=== PATIENT | female | born 1945 | race Caucasian/White ===

== ENCOUNTER 2023-05-01 07:50 | Day surgery (SDC) | payer MEDICARE, OTHER ==
[2023-04-29 11:40] VITALS: BP 149/65
[~2023-05-01] VITALS: Ht 160 cm; Wt 90.0 kg
[~2023-05-01 07:50] MED LIST: ATORVASTATIN CA40 MG PO; BISOPROLOL FUMAR5 MG PO; CELEXA40 MG PO; CLARITIN10 M2 PO; DEPAKOTE ER250 MG PO; DEPAKOTE ER500 MG PO; FUROSEMIDE20 MG PO; K-TAB ER20 MEQ; LEVOTHYROXINE100 MC2 PO; LISINOPRIL-HCT1 EACH PO; LOW DOSE ASPIRI81 MG PO; METFORMIN HCL500 M2 PO; MULTI VITAMIN1 EACH PO; SINGULAIR10 MG PO
[2023-05-01 08:03] VITALS: BP 149/57
--- NOTE | 2023-05-01 10:51 | NUR ---
05/01/23 1051 Jennifer Zuluaga 1037 PT TO PACU AWAKE, DENIES PAIN AND NAUSEA.
[2023-05-01 11:16] VITALS: BP 156/64
--- NOTE | 2023-05-01 12:43 | OR ---
[facility] [address] [place], [place] [address] Signed DATE OF OPERATION: 05/01/2023 SURGEON: Stacey Orozco MD PREOPERATIVE DIAGNOSES: 1. Probable personal history of colonic polyps 2010 at age 64. 2. Positive Cologuard test. 3. Anemia with hemoglobin of 11.8, mean cell volume 91.8. POSTOPERATIVE DIAGNOSES: 1. Tortuous sigmoid colon. 2. Minimal to moderate sigmoid diverticulosis. 3. Moderate internal and external hemorrhoids with associated skin tags. 4. 3 mm polyps x3 at 4 cm in rectum. 5. 10 mm and 7 mm sessile polyps at ileocecal valve and opposite ileocecal valve (snare). 6. 4 mm polyp at 90 cm and distal splenic flexure. 7. 4 mm polyp at 85 cm in proximal left colon. 8. 15 mm pedunculated polyp at 12 cm in rectosigmoid junction (snare). PROCEDURE: Colonoscopy with hot biopsy and snare polypectomy. ESTIMATED BLOOD LOSS: None. INDICATIONS: Maxine is a 77-year-old female, asked to see me for a followup colonoscopy. In 2009 at the age of 64, she underwent a colonoscopy with Dr. Burroughs in [place], [place]. She thinks maybe a polyp was removed at that time. She told me her memory is not the best. She did have a positive Cologuard test recently. Otherwise, she has no lower GI complaints. There is no family history of colon cancer or polyps. In the office, I gave Maxine a pamphlet on colonoscopy. We had reviewed the nature of the test along with the risk including, but not limited to gas bloating, crampy abdominal pain, bleeding, perforation requiring surgery, and missed diagnosis. We also reviewed the need for monitored anesthesia care given her advanced age as well as sleep apnea and heavy round face, chest and abdomen. She had expressed understanding and wished to proceed. DESCRIPTION OF PROCEDURE: Maxine was taken into our endoscopy suite and placed in the left lateral decubitus Electronically Signed By: STACEY OROZCO MD 05/01/23 1243 PATIENT NAME: MAXINE MANJARREZ OPERATIVE REPORT DATE OF : 45 REPORT #: [id number] PHYSICIAN: STACEY OROZCO MD PCP: BRENDAN STEVENSON MD REPORT IS CONFIDENTIAL AND NOT TO BE RELEASED WITHOUT AUTHORIZATION [facility] [address] [place], [place] [address] Signed position under monitored anesthesia care with propofol infusion per our nurse director of medical staff services. She was given preoperative antibiotics for her joint replacements. A digital rectal exam was performed and she had minimal to moderate circumferential external hemorrhoids with associated skin tags. She had good sphincter tone. There were no masses. The adult colonoscope was introduced and it took us probably 10 maybe even 15 minutes to get through a very difficult rectosigmoid junction and up through her tortuous sigmoid colon and into the left colon. After that, the colon started opened up nicely and took a few minutes, but we got around to her cecum. We had used some abdominal compression. Her prep thankfully was quite good. We could easily see the appendiceal orifice and the ileocecal valve. The scope was then slowly withdrawn. The above-mentioned polyps were removed mainly with the help of the hot biopsy forceps but we also had to use the snare at the ileocecal valve and opposite the ileocecal valve as those polyps were sessile in nature. She had a large 15 mm if not larger pedunculated polyp at 12 cm at the rectosigmoid junction. We removed it in two pieces with the help of the snare. I think one piece was lost. We went back and looked at the area very carefully and we felt like the entire polyp was removed. She also has some diverticula in the sigmoid colon. They were moderate in size, few in number and scattered about. Once in the rectum, the scope had been retroflexed and she does have moderate internal hemorrhoid columns as well. After this, the gas was suctioned out and colonoscope removed. Maxine tolerated the procedure quite well. RECOMMENDATIONS: I will see Maxine back in my office in 7 to 14 days to review her results. Hopefully this will be her last endoscopy. Stacey Orozco MD ALB/MODL /[id number] cc: MD Brendan Pitts MD Copies: STACEY OROZCO MD Electronically Signed By: STACEY OROZCO MD 05/01/23 1243 PATIENT NAME: MAXINE MANJARREZ OPERATIVE REPORT DATE OF : 45 REPORT #: [id number] PHYSICIAN: STACEY OROZCO MD PCP: BRENDAN STEVENSON MD REPORT IS CONFIDENTIAL AND NOT TO BE RELEASED WITHOUT AUTHORIZATION [address] [address] Signed BRENDAN STEVENSON MD ~ Electronically Signed By: STACEY OROZCO MD 05/01/23 1243 PATIENT NAME: JOSSELINEMAXINEE OPERATIVE REPORT DATE OF : 45 REPORT #: [id number] PHYSICIAN: STACEY OROZCO MD PCP: BRENDAN STEVENSON MD REPORT IS CONFIDENTIAL AND NOT TO BE RELEASED WITHOUT AUTHORIZATION
--- NOTE | 2023-05-08 12:00 | PATH ---
[facility] [address] [facility] [place] [place] [address] Signed SPECIMEN(S): A RECTAL POLYP AT 4 CM SPECIMEN(S): B ILEOCECAL VALVE COLON POLYP SPECIMEN(S): C SPLENIC FLEXURE COLON POLYP AT 90 CM SPECIMEN(S): D DESCENDING LEFT COLON POLYP AT 85 CM SPECIMEN(S): E RECTAL POLYP AT 12 CM SPECIMEN SOURCE: A. RECTAL POLYP AT 4 CM B. ILEOCECAL VALVE COLON POLYP C. SPLENIC FLEXURE COLON POLYP AT 90 CM D. DESCENDING LEFT COLON POLYP AT 85 CM E. RECTAL POLYP AT 12 CM CLINICAL HISTORY: Guaiac positive stools FINAL PATHOLOGIC DIAGNOSIS: A. Rectal polyp at 4 cm, biopsies: - Hyperplastic polyp fragments. B. Ileocecal valve polyp, biopsies: - Fragments of tubular adenoma. C. Splenic flexure polyp, biopsy: - Hyperplastic polyp. D. Descending polyp, biopsy: - Tubular adenoma. E. Rectal polyp at 12 cm, polypectomy: - Tubular adenoma, negative for high-grade glandular dysplasia or malignancy. AMB MICROSCOPIC EXAMINATION: Histologic sections of all submitted blocks are examined by light microscopy. These findings, together with the gross examination, support the pathologic diagnosis. GROSS DESCRIPTION: A. The specimen, labeled and designated "Bria Cummings " and designated on the requisition "colon, rectum polypectomy at 4 cm," is received in formalin and consists of three santos soft tissue fragments measuring 0.2 to 0.4 cm in length and up to 0.3 cm in greatest diameter, all specimens are submitted entirely in (A1). B. The specimen, labeled and designated "Bria Cummings, " and designated on the PATIENT NAME: BRIT CUMMINGS PATHOLOGY DATE OF : 45 REPORT #: [id number] PHYSICIAN: EVON CROUCH PCP: BRENDAN STEVENSON MD REPORT IS CONFIDENTIAL AND NOT TO BE RELEASED WITHOUT AUTHORIZATION [facility] [address] [place], [place] [address] Signed requisition "ileum, ileocecal valve polypectomy," is received in formalin and consists of three santos soft tissue fragments measuring 0.4 to 0.6 cm in length and up to 0.5 cm in greatest diameter, all specimens are submitted entirely in (B1). C. The specimen, labeled and designated "Bria Cummings, " and designated on the requisition "colon, splenic flexure polypectomy at 90 cm," is received in formalin and consists of one santos soft tissue fragment measuring 0.3 cm, the specimen is submitted entirely in (C1). D. The specimen, labeled and designated "Bria Cummings, " and designated on the requisition "colon, descending/left polypectomy at 85 cm," is received in formalin and consists of one santos soft tissue fragment measuring 0.4 cm, the specimen is submitted entirely in (D1). E. The specimen, labeled and designated "Emiliano Bria, " and designated on the requisition "colon, rectum polypectomy at 12 cm," is received in formalin and consists of one santos soft polypoid tissue measuring 1.3 x 0.8 x 0.8 cm, the specimen is inked entirely with [place] green, serially sectioned and submitted entirely in (E1). MMA (under the direct supervision of a pathologist) The Gross Description was prepared using a voice recognition system. The report was reviewed for accuracy; however, sound-alike word errors, addition and/or deletions may occur. If there is any question about this report, please contact Client Services. ADDITIONAL NOTES: Immunohistochemical and/or in situ hybridization studies if performed in this case included appropriate positive controls that reacted as expected. This test was developed and its performance characteristics determined by [facility]. It has not been cleared or approved by the U.S. Food and Drug Administration. The FDA has determined that such clearance or approval is not necessary. This test is used for clinical purposes. It should not be regarded as investigational or for research. [facility] is certified under the Clinical Laboratory Improvement Amendments of 1988 (CLIA) as qualified to perform high complexity clinical laboratory testing. PERFORMING LABORATORY: Technical component was performed by [facility], [address] [place] [address] (CLIA# [id number]). Professional interpretation was performed by [facility] [address] [facility] [id number] PATIENT NAME: BRIT CUMMINGS PATHOLOGY DATE OF : 45 REPORT #: [id number] PHYSICIAN: EVON CROUCH PCP: BRENDAN STEVENSON MD REPORT IS CONFIDENTIAL AND NOT TO BE RELEASED WITHOUT AUTHORIZATION [facility] [address] [facility] [place], [place] [address] Signed Diagnostician: Sonam Yun MD Pathologist Electronically Signed 05/08/2023 Copies: ~ PATIENT NAME: CUMMINGSBRIT PATHOLOGY DATE OF : 45 REPORT #: [id number] PHYSICIAN: EVON PATHOLOGY PCP: BRENDAN STEVENSON MD REPORT IS CONFIDENTIAL AND NOT TO BE RELEASED WITHOUT AUTHORIZATION
== END 2023-05-01 11:30 | disposition home or self-care (01) ==
LOC: DS 07:50 → OPS 07:50 → DS 09:00 → OPS 11:30
PROVIDERS: ATTEND Colon & Rectal Surgery
PROC: 0DBL8ZZ Excision of Transverse Colon, Via Natural or Artificial Opening Endoscopic (ICD-10-PCS; 2023-05-01)
PROC: 0DBN8ZZ Excision of Sigmoid Colon, Via Natural or Artificial Opening Endoscopic (ICD-10-PCS; 2023-05-01)
PROC: 0DBP8ZZ Excision of Rectum, Via Natural or Artificial Opening Endoscopic (ICD-10-PCS; 2023-05-01)
PROC: 0DBG8ZZ Excision of Left Large Intestine, Via Natural or Artificial Opening Endoscopic (ICD-10-PCS; 2023-05-01)
PROC: 0DBC8ZZ Excision of Ileocecal Valve, Via Natural or Artificial Opening Endoscopic (ICD-10-PCS; principal; 2023-05-01 09:00)
DX: Z12.11 Encounter for screening for malignant neoplasm of colon (principal); K57.30 Diverticulosis of large intestine without perforation or abscess without bleeding; K64.8 Other hemorrhoids; K64.4 Residual hemorrhoidal skin tags; K63.5 Polyp of colon; F31.9 Bipolar disorder, unspecified; K21.9 Gastro-esophageal reflux disease without esophagitis; E78.5 Hyperlipidemia, unspecified; E03.9 Hypothyroidism, unspecified; E66.9 Obesity, unspecified; E11.22 Type 2 diabetes mellitus with diabetic chronic kidney disease; I12.9 Hypertensive chronic kidney disease with stage 1 through stage 4 chronic kidney disease, or unspecified chronic kidney disease; N18.9 Chronic kidney disease, unspecified; Z88.2 Allergy status to sulfonamides; D12.4 Benign neoplasm of descending colon; D12.8 Benign neoplasm of rectum
CPT/HCPCS: 00811; 88305; J0690; J2001; J2704; J3490; J7121